=== PATIENT | male | born 1995 | race Caucasian/White ===

== ENCOUNTER → 2021-03-21 13:34 | Outpatient (CLI) | payer OTHER, SELFPAY ==
[2021-03-21 16:12] LABS: COVID19 -Nasal RAPID Negative (Negative)
== END ==
PROVIDERS: Visit Provider Specialist
DX: Z20.822 Contact with and (suspected) exposure to COVID-19 (principal)
CPT/HCPCS: 87635; C9803

== ENCOUNTER 2021-03-23 06:32 | Day surgery (SDC) | payer OTHER, SELFPAY ==
[2021-03-22 07:29] VITALS: BMI 29.3
[2021-03-23] VITALS (8 sets, daily range): BP systolic 102–121; BP diastolic 67–79; PULSE 54–93; RESP 12–20; TEMP 35.9–36.6; O2SAT 97–99; BMI 29.3
[2021-03-23] MEDS: LACTATED RINGERS 1,000 ML 42 ML IV (07:29)
--- NOTE | 2021-03-23 07:35 | PM.PREOP ---
Pre-operative Note Interval Note History & Physical reviewed/Exam performed by Physician: Yes Changes to H&P: No
[2021-03-23] MEDS: CEFAZOLIN 1 GM VIAL 2 GM IV (08:01)
--- NOTE | 2021-03-23 08:11 | SUR.OPER ---
Supine on padded OR bed, head on pillow, arms secured on padded arm boards at <90 degrees abduction, legs uncrossed, safety belt at thigh, tape over blanket over lower legs.
[2021-03-23] MEDS: BUPIVACAINE LIPOSOME 266 MG/20 ML VIAL INJ (08:16)
[2021-03-23] MEDS: NEOMYCIN/POLYMYXIN/BACITRA UD OINT 1 EACH TOP (08:36)
--- NOTE | 2021-03-23 08:56 | P.OP_ITS ---
Operative Date/Time/Diagnoses Date of procedure: 03/23/21 Time of procedure: 08:56 Pre-op diagnosis: Glans-preputial adhesions Post-op diagnosis: same Procedure & Clinicians Procedure: 1. Revision circumcision Same procedure as scheduled: Yes Indications: 1. Glans preputial adhesions Surgeon: Concepcion Khalil Click Yes if Unassisted: Yes Anesthesia Type: General and Local (1.33% Exparel) Operative Notes Findings: Continuous glans preputial adhesion from approximately 4:00 a.m. to 9:00 a.m. ventrally. Closure Type: primary Specimen(s): none sent Estimated Blood Loss (mL): 1 Blood products transfused: none Tourniquet time (min): 0 Procedure in detail: Patient was positioned in supine was administered general anesthesia. Lower abdomen, genitalia, and groin were then prepped and draped in sterile fashion. Exparel was then used to create a dorsal penile block. The cutaneous track was then cannulated with a large lacrimal probe. A curved hemostatic clamp was then used to create crush hemostasis along the course of the adhesion. The cutaneous tunnel was then divided sharply. Hemostasis was attained with electrocautery. A running vertical mattress of 4-0 chromic was then used to repair the skin edges along the distal shaft and along the edge the penile glans. Local anesthetic was then used to infiltrate the region of the repair. Xeroform gauze was then applied along the incisions. 2 in Kerlix wrap was then applied followed by a non constricting wra of 2 in Coban. Finally the dressing with secured with 1 in plastic tape and a non constricting manner. The patient was then awakened, transferred to [facility] and transferred recovery in stable condition. Complications: none Post-operative Condition: stable Disposition: PACU Plan for aftercare: Discharge home
== END 2021-03-23 10:09 | disposition home or self-care (01) ==
PROVIDERS: Referring Provider Specialist; Visit Provider Specialist
PROC: (CPT 54162; principal; 2021-03-23 07:45)
DX: N47.5 Adhesions of prepuce and glans penis (principal)
CPT/HCPCS: 54162; 99281; C9290; J0690; J2405; J2704; J3010

== ENCOUNTER 2021-03-23 23:18 | Emergency (ER) | payer OTHER, SELFPAY ==
[2021-03-23 23:22] VITALS: BP 141/70; PULSE 64; RESP 17; TEMP 36.3; O2SAT 97; BMI 29.5
[2021-03-24 00:32] VITALS: BP 130/78; PULSE 65; RESP 16; O2SAT 96
--- NOTE | 2021-03-24 02:52 | ED.MALEGU ---
HPI - Male Genitourinary General Chief complaint: Urogenital-Male Stated complaint: bleeding from penis after procedure today Time Seen by Provider: 03/24/21 00:12 Source: patient Mode of arrival: Ambulatory History of Present Illness HPI Narrative: 25-year-old male nonsmoker with history of asthma presents with significant other and a chief complaint of concerns of bleeding from his penis over the course of the day. He was seen by Urology earlier today to have a revision of circumcision and noticed blood soaking through the bandage. He denies any pain, numbness or tingling. He has no trouble urinating. He has had no fever or chills. He is otherwise well and free of complaint Related Data Home Medications Medication Instructions Recorded Confirmed albuterol sulfate 90 mcg/actuation 2 puff INHALATION Q4-6H PRN 03/20/21 03/23/21 aerosol inhaler (ProAir HFA) dupilumab [Dupixent Pen] 1 dose SUBCUT Q2W 03/20/21 03/23/21 fluticasone furoate 100 1 inh INHALATION DAILY 03/20/21 03/23/21 mcg-vilanterol 25 mcg/dose inhalation powder (Breo Ellipta) ibuprofen 100 mg tablet 200 mg PO Q6H PRN 03/23/21 03/23/21 Previous Rx's Medication Instructions Recorded oxycodone 5 mg tablet 5 mg PO Q4H PRN #14 tab 03/23/21 Allergies Allergy/AdvReac Type Severity Reaction Status Date / Time No Known Drug Allergies Allergy Verified 03/20/21 10:12 Review of Systems Review of Systems Narrative: GENERAL: Denies chills, fatigue, malaise, fever, sweats. HEENT: Denies sinus pain, ear pain, sore throat, difficulty swallowing, dizziness. RESPIRATORY: Denies dyspnea, cough, wheezing, hemoptysis, sputum. CARDIOVASCULAR: Denies chest pain, palpitations, orthopnea, edema, GASTROINTESTINAL: Denies nausea, vomiting, abdominal pain, diarrhea, constipation, melena. : See HPI MUSCULOSKELETAL: denies weakness, joint pain, or bony pain SKIN: Denies rash, skin lesions, or other NEUROLOGIC: Denies weakness, headache, numbness, change in speech, confusion, seizures, incoordination. PSYCHIATRIC: No concerning psychosocial issues. 12 point review of systems is negative except for those stated above Patient History Medical History Adhesions of prepuce and glans penis Asthma Family History Mother Eczema Father Gout Social History marital status: number of children: 0 household members: spouse Smoking Status: Never smoker alcohol intake: current caffeine: Yes Smoking Status: Never smoker alcohol intake frequency: 0-2 drinks per day Substance Use Type: does not use Exam Narrative Exam Narrative: GEN: AOx3 and in mild distress EYES: Pupils are equal, round, and reactive to light and accommodation. Extraoccular muscles are intact bilaterally. There is no subconjunctival hemorrhage or exudate. CHEST: Lungs are clear to auscultation bilaterally and free of wheezes, rales, or rhonchi. Heart rate is regular rhythm, there are no murmurs, clicks, rubs, or gallops. There is no chest wall tenderness. ABD: Abdomen is soft and nontender. There is no guarding or rebound. Bowel sounds are normal in all 4 quadrants. There is no mass or organomegaly. : penis exposed, minimal blood has soaked through surgical warp. Very minimal, slow bleeding on underside of penis. No wound dehiscence, drainage or pain. No drainage from the meatus EXT: Full painless ROM of all extremities with no loss of sensation or strength. SKIN: Warm, pink, and dry. No erythema or rash Initial Vital Signs Initial Vital Signs: Vital Signs Temperature 97.4 F L 03/23/21 23:22 Pulse Rate 64 03/23/21 23:22 Respiratory Rate 17 03/23/21 23:22 Blood Pressure 141/70 H 03/23/21 23:22 Pulse Oximetry 97 03/23/21 23:22 Course Course Course Narrative: Incision and sutures exposed, no dehiscence, very minimal bleeding. No extra sutures needed. Surgicel and dressing replaced, patient given return precautions and questions have been answered to his apparent satisfaction Vital Signs Vital signs: Vital Signs - 8 hr 03/23/21 23:22 03/24/21 00:32 Temperature 97.4 F L Pulse Rate 64 65 Respiratory Rate 17 16 Blood Pressure 141/70 H 130/78 Pulse Oximetry 97 96 Discharge Plan Departure Patient Disposition: Home Clinical Impression: Post-operative hemorrhage Activity Restrictions/Additional Instructions: *You have been diagnosed with [minimal postoperative bleeding] *What to do: *Please continue to take your regular medications as directed. [ ] New medication prescriptions sent to your pharmacy: [ ] [ ] New medication written as a paper prescription [x ] No new medications given *Please follow up with your urologist in a few days, call for an appointment. Let them know you were seen in the Emergency Department and that we ask that you be seen in follow up. We will electronically transmit a record of today's note to Dr. Khalil *Return to Emergency Department if you should have any new, worsening or concerning symptoms, such as [fever greater than 101 F, shaking chills, worsening pain, persistent vomiting or other bothersome symptoms] Prescriptions: No Action ibuprofen 100 mg Tablet 200 mg PO Q6H PRN (Reason: Pain (Scale Score 1-3)) RF: 0 oxycodone 5 mg tablet 5 mg PO Q4H PRN (Reason: pain) Qty: 14 RF: 0 albuterol sulfate [ProAir HFA] 90 mcg/actuation HFA aerosol inhaler 2 puff inhalation Q4-6H PRN (Reason: Asthma) RF: 0 Breo Ellipta 100-25 mcg/dose blister with device 1 inh inhalation DAILY RF: 0 dupilumab [Dupixent Pen] 1 dose SUBCUT Q2W RF: 0 Referrals: Concepcion Khalil MD [Physician] -
== END 2021-03-24 00:33 | disposition home or self-care (01) ==
PROVIDERS: Emergency Provider Emergency Medicine
DX: L76.22 Postprocedural hemorrhage of skin and subcutaneous tissue following other procedure (principal)
CPT/HCPCS: 99281